=== PATIENT | female | born 1945 | race African-American/Black ===

== ENCOUNTER 2018-06-29 18:52 | Inpatient (IN) | payer MEDICARE, MEDICAID, OTHER ==
[~2018-06-29] VITALS: Ht 160 cm; Wt 40.4 kg
[2018-06-29 21:01] LABS: CHLORIDE 108 mEq/L (98-107)
[2018-06-29] MEDS ORDERED: NITROGLYCERIN OINT 1GM/INCH UDPKT TD ONE (21:45)
[2018-06-29] MEDS ORDERED: ASPIRIN 325MG EC TABLET PO ONE (21:45)
[2018-06-29] MEDS ORDERED: MORPHINE SULFATE 2 MG/ML CPJ (NOT FOR IM USE) IV ONE (21:45)
[2018-06-29 22:08] LABS: HEMATOCRIT. 36.9 % (36.0-48.0); HEMOGLOBIN. 12.1 g/dL (12.0-16.0); LYMPHOCYTES % 17.9 % (20.0-50.0); MEAN CORPUSCULAR HEMOGLOBIN 27.4 pg (28.0-32.0); MEAN CORPUSCULAR VOLUME 83.5 fL (81.0-99.0); MEAN PLATELET VOLUME 7.1 fl (7.4-10.4); MONOCYTES % 6.3 % (2.0-8.0); NEUTROPHILS % 73.8 % (40.0-76.0); PLATELET 505 x1000/uL (130-400); RED BLOOD CELL COUNT 4.42 mill/uL (4.2-5.4); RED CELL DISTRIBUTION WIDTH 17.5 % (11.6-14.6)
[2018-06-29] MEDS ORDERED: MORPHINE SULFATE 4 MG/ML CPJ (NOT FOR IM USE) IV NR (22:15)
[2018-06-29 22:25] LABS: PROTHROMBIN TIME 10.2 sec (9.1-11.1)
[2018-06-29 23:30] VITALS: BP 160/72
[2018-06-29] MEDS ORDERED: GUAIFENESIN 200MG/10ML SUGAR FREE UDC PO PRN (23:30)
[2018-06-29] MEDS ORDERED: ACETAMINOPHEN 325MG TABLET PO PRN (23:30)
[2018-06-29] MEDS ORDERED: DEXTROSE 50% WATER 50ML SYRINGE IV PRN (23:30)
[2018-06-29] MEDS ORDERED: HYDROCODONE/ACETAMINOPHEN 10/325MG TABLET PO PRN (23:30)
[2018-06-29] MEDS ORDERED: CLONIDINE 0.1MG TABLET PO PRN (23:30)
[2018-06-29] MEDS ORDERED: DOCUSATE SODIUM 100MG CAPSULE PO PRN (23:30)
[2018-06-29] MEDS ORDERED: HYDRALAZINE 20MG/ML VIAL IV PRN (23:30)
[2018-06-29] MEDS ORDERED: ONDANSETRON HCL 4MG/2ML INJ IV PRN (23:30)
[2018-06-29] MEDS ORDERED: DIPHENHYDRAMINE 50MG/ML VIAL IV PRN (23:30)
[2018-06-29] MEDS ORDERED: MAGNESIUM/ALUMINUM HYDROXIDE/SIMETHICONE 30ML UDC PO PRN (23:30)
[2018-06-29] MEDS ORDERED: IPRATROPIUM/ALBUTEROL 0.5-3(2.5)MG/3ML NEB INH PRN (23:30)
[2018-06-29] MEDS ORDERED: LORAZEPAM 2MG/ML CPJ IV PRN (23:30)
[2018-06-30] VITALS: BP 156/78
[2018-06-30] MEDS: MORPHINE SULFATE 4 MG/ML CPJ (NOT FOR IM USE) IV PRN ×3 (00:49→20:05)
[2018-06-30] MEDS ORDERED: DEXT 5%/0.45% NACL 1000ML 1,000 ML IV SCH ×2 (01:30→15:56)
[2018-06-30] MEDS ORDERED: CLOP75TA16 MT (01:42)
[2018-06-30] MEDS ORDERED: ASPI-1158 MT (01:42)
[2018-06-30] MEDS ORDERED: GLIM2TAB2 MT (01:42)
[2018-06-30] MEDS ORDERED: AMLO5TAB88 MT (01:42)
[2018-06-30] MEDS ORDERED: OMEP20CA10 MT (01:42)
[2018-06-30] MEDS ORDERED: GABA800T97 MT (01:42)
[2018-06-30 04:00] VITALS: BP 162/73
[2018-06-30 06:15] LABS: CLARITY URINE CLEAR (CLEAR); COLOR URINE YELLOW (YELLOW); KETONES URINE NEGATIVE (NEGATIVE); LEUKOCYTE ESTERASE URINE NEGATIVE (NEGATIVE); NITRITE URINE NEGATIVE (NEGATIVE); OCCULT BLOOD URINE NEGATIVE (NEGATIVE); PH URINE 6.5 (4.5-8.0); PROTEIN URINE TRACE (NEGATIVE); SPECIFIC GRAVITY URINE 1.009 (1.005-1.030); UROBILINOGEN URINE 0.2 E.U./dL (0.2-1.0)
[2018-06-30] MEDS: BLOOD SUGAR DIAGNOSTIC STRIP TEST SCH ×4 (07:02→20:22)
[2018-06-30] MEDS: INSULIN LISPRO 100 UNITS/ML SUBCUT SCH ×4 (07:02→20:22)
[2018-06-30] MEDS: SODIUM CHLORIDE 0.9% INJ 3ML FLUSH IVF SCH ×3 (07:06→22:00)
[2018-06-30 07:25] LABS: BASOPHILS % 0.7 % (0.0-2.0); EOSINOPHILS % 1.9 % (0.0-5.0); HEMATOCRIT. 32.8 % (36.0-48.0); HEMOGLOBIN. 11.3 g/dL (12.0-16.0); LYMPHOCYTES % 33.1 % (20.0-50.0); MEAN CORPUSCULAR HEMOGLOBIN 28.5 pg (28.0-32.0); MEAN CORPUSCULAR VOLUME 82.6 fL (81.0-99.0); MEAN PLATELET VOLUME 7.2 fl (7.4-10.4); MONOCYTES % 8.1 % (2.0-8.0); NEUTROPHILS % 56.2 % (40.0-76.0); PLATELET 474 x1000/uL (130-400); RED BLOOD CELL COUNT 3.97 mill/uL (4.2-5.4); RED CELL DISTRIBUTION WIDTH 17.4 % (11.6-14.6)
[2018-06-30 07:30] LABS: CHLORIDE 108 mEq/L (98-107)
[2018-06-30 07:40] LABS: LDL CHOLESTEROL 99 mg/dL (5-100)
[2018-06-30 07:41] LABS: CREATINE KINASE 78 IU/L (26-192); HDL CHOLESTEROL 34 mg/dL (40-59)
[2018-06-30 07:48] LABS: CREATINE KINASE MB FRACTION 6.8 ng/mL (0.5-3.6)
[2018-06-30 08:00] VITALS: BP 151/72
[2018-06-30] MEDS ORDERED: ASPIRIN 81MG EC TABLET PO SCH (09:00)
[2018-06-30] MEDS ORDERED: ENOXAPARIN 30MG/0.3ML SYR SUBCUT SCH ×2 (09:00→17:00)
[2018-06-30] MEDS: CLOPIDOGREL 75MG TABLET PO SCH (11:52)
[2018-06-30] MEDS: AMLODIPINE 2.5MG TABLET PO SCH ×2 (11:54→20:17)
[2018-06-30] MEDS: NITROGLYCERIN OINT 1GM/INCH UDPKT TD SCH ×2 (11:55→17:34)
[2018-06-30 12:00] VITALS: BP_SYST 136; BP_SYST 137; BP_SYST 156; BP_DIAS 69; BP_DIAS 73
[2018-06-30 14:52] LABS: *AMPHETAMINES SCREEN URINE NEGATIVE (NEGATIVE); *BARBITURATES SCREEN URINE NEGATIVE (NEGATIVE); *BENZODIAZEPINES SCREEN URINE NEGATIVE (NEGATIVE); *COCAINE SCREEN URINE PRESUMTIVE POSITIVE (NEGATIVE)
[2018-06-30 14:53] LABS: CANNABINOID URINE SCREEN NEGATIVE (NEGATIVE); METHADONE URINE SCREEN NEGATIVE (NEGATIVE); OPIATES URINE SCREEN PRESUMTIVE POSITIVE (NEGATIVE); PHENCYCLIDINE URINE SCREEN NEGATIVE (NEGATIVE)
[2018-06-30 16:00] VITALS: BP 146/56
[2018-06-30 16:27] LABS: CREATINE KINASE MB FRACTION 5.1 ng/mL (0.5-3.6)
[2018-06-30] MEDS: ASPIRIN 81MG EC TABLET PO SCH (17:34)
[2018-06-30 20:00] VITALS: BP_SYST 150; BP_SYST 153; BP_SYST 165; BP_DIAS 61; BP_DIAS 63; BP_DIAS 68
[2018-06-30] MEDS: METOPROLOL TARTRATE 25MG TABLET PO SCH (20:05)
[2018-06-30] MEDS: ATORVASTATIN CALCIUM 10MG TABLET PO SCH (20:06)
[2018-07-01] VITALS: BP 163/65
[2018-07-01] MEDS: NITROGLYCERIN OINT 1GM/INCH UDPKT TD SCH ×4 (00:28→17:29)
[2018-07-01 03:50] VITALS: BP 130/56
[2018-07-01] MEDS: MORPHINE SULFATE 4 MG/ML CPJ (NOT FOR IM USE) IV PRN ×3 (03:52→22:12)
[2018-07-01] MEDS: SODIUM CHLORIDE 0.9% INJ 3ML FLUSH IVF SCH ×3 (06:31→20:47)
[2018-07-01] MEDS: BLOOD SUGAR DIAGNOSTIC STRIP TEST SCH ×4 (06:35→20:48)
[2018-07-01] MEDS: INSULIN LISPRO 100 UNITS/ML SUBCUT SCH ×4 (06:35→20:49)
[2018-07-01 07:08] LABS: BASOPHILS % 0.6 % (0.0-2.0); EOSINOPHILS % 1.8 % (0.0-5.0); HEMATOCRIT. 31.6 % (36.0-48.0); HEMOGLOBIN. 10.2 g/dL (12.0-16.0); LYMPHOCYTES % 35.5 % (20.0-50.0); MEAN CORPUSCULAR VOLUME 83.4 fL (81.0-99.0); MEAN PLATELET VOLUME 7.4 fl (7.4-10.4); MONOCYTES % 8.9 % (2.0-8.0); NEUTROPHILS % 53.2 % (40.0-76.0); PLATELET 416 x1000/uL (130-400); RED BLOOD CELL COUNT 3.78 mill/uL (4.2-5.4); RED CELL DISTRIBUTION WIDTH 17.5 % (11.6-14.6)
[2018-07-01 07:30] LABS: CHLORIDE 107 mEq/L (98-107)
[2018-07-01 07:46] LABS: LDL CHOLESTEROL 84 mg/dL (5-100)
[2018-07-01 07:47] LABS: CREATINE KINASE 64 IU/L (26-192); CREATINE KINASE MB FRACTION 4.1 ng/mL (0.5-3.6)
[2018-07-01 07:48] LABS: HDL CHOLESTEROL 29 mg/dL (40-59); T4 FREE 1.12 ng/dL (0.76-1.46)
[2018-07-01 08:00] VITALS: BP 122/65
[2018-07-01] MEDS: AMLODIPINE 2.5MG TABLET PO SCH ×2 (09:00→20:46)
[2018-07-01] MEDS: CLOPIDOGREL 75MG TABLET PO SCH (09:27)
[2018-07-01] MEDS: ASPIRIN 81MG EC TABLET PO SCH ×2 (09:27→17:29)
[2018-07-01] MEDS: METOPROLOL TARTRATE 25MG TABLET PO SCH ×2 (09:28→20:46)
[2018-07-01 12:00] VITALS: BP 129/54
[2018-07-01] MEDS: ENOXAPARIN 40MG/0.4ML SYR SUBCUT SCH (13:19)
[2018-07-01 16:00] VITALS: BP 150/54
[2018-07-01 20:00] VITALS: BP_SYST 144; BP_SYST 148; BP_SYST 157; BP_DIAS 60; BP_DIAS 61; BP_DIAS 62
[2018-07-01] MEDS: ATORVASTATIN CALCIUM 10MG TABLET PO SCH (20:46)
[2018-07-02] VITALS: BP 160/58
[2018-07-02] MEDS: NITROGLYCERIN OINT 1GM/INCH UDPKT TD SCH ×3 (01:42→11:44)
[2018-07-02 04:00] VITALS: BP 178/77
[2018-07-02] MEDS: SODIUM CHLORIDE 0.9% INJ 3ML FLUSH IVF SCH ×3 (06:39→20:58)
[2018-07-02] MEDS: INSULIN LISPRO 100 UNITS/ML SUBCUT SCH ×4 (06:40→22:30)
[2018-07-02] MEDS: BLOOD SUGAR DIAGNOSTIC STRIP TEST SCH ×4 (06:40→20:58)
[2018-07-02 07:19] LABS: BASOPHILS % 0.5 % (0.0-2.0); EOSINOPHILS % 2.4 % (0.0-5.0); HEMATOCRIT. 32.2 % (36.0-48.0); HEMOGLOBIN. 10.6 g/dL (12.0-16.0); LYMPHOCYTES % 30.2 % (20.0-50.0); MEAN CORPUSCULAR VOLUME 82.1 fL (81.0-99.0); MEAN PLATELET VOLUME 7.7 fl (7.4-10.4); MONOCYTES % 9.7 % (2.0-8.0); NEUTROPHILS % 57.2 % (40.0-76.0); PLATELET 456 x1000/uL (130-400); RED BLOOD CELL COUNT 3.92 mill/uL (4.2-5.4); RED CELL DISTRIBUTION WIDTH 17.6 % (11.6-14.6)
[2018-07-02 08:00] VITALS: BP 132/63
[2018-07-02] MEDS: CLOPIDOGREL 75MG TABLET PO SCH (09:11)
[2018-07-02] MEDS: METOPROLOL TARTRATE 25MG TABLET PO SCH ×2 (09:11→20:57)
[2018-07-02] MEDS: AMLODIPINE 2.5MG TABLET PO SCH (09:11)
[2018-07-02] MEDS: ASPIRIN 81MG EC TABLET PO SCH ×2 (09:11→16:41)
[2018-07-02 11:35] VITALS: BP_SYST 159; BP_SYST 161; BP_SYST 166; BP_DIAS 57; BP_DIAS 61; BP_DIAS 76
[2018-07-02] MEDS: ENOXAPARIN 40MG/0.4ML SYR SUBCUT SCH (11:43)
[2018-07-02] MEDS: LOSARTAN POTASSIUM 50 MG TABLET PO SCH (13:28)
[2018-07-02 16:00] VITALS: BP 166/65
[2018-07-02 20:00] VITALS: BP 151/67
[2018-07-02] MEDS: ATORVASTATIN CALCIUM 10MG TABLET PO SCH (20:57)
[2018-07-02] MEDS: AMLODIPINE 5MG TABLET PO SCH (20:57)
[2018-07-02] MEDS: MORPHINE SULFATE 4 MG/ML CPJ (NOT FOR IM USE) IV PRN (20:59)
[2018-07-03] VITALS (7 sets, daily range): BP systolic 81–164; BP diastolic 46–63
[2018-07-03] MEDS: BLOOD SUGAR DIAGNOSTIC STRIP TEST SCH ×4 (06:13→21:00)
[2018-07-03] MEDS: INSULIN LISPRO 100 UNITS/ML SUBCUT SCH ×4 (06:13→21:00)
[2018-07-03] MEDS: SODIUM CHLORIDE 0.9% INJ 3ML FLUSH IVF SCH ×3 (06:13→22:05)
[2018-07-03] MEDS: LOSARTAN POTASSIUM 50 MG TABLET PO SCH (08:58)
[2018-07-03] MEDS: ENOXAPARIN 30MG/0.3ML SYR SUBCUT SCH (08:59)
[2018-07-03] MEDS: AMLODIPINE 5MG TABLET PO SCH ×2 (08:59→22:04)
[2018-07-03] MEDS: CLOPIDOGREL 75MG TABLET PO SCH (08:59)
[2018-07-03] MEDS: ASPIRIN 81MG EC TABLET PO SCH ×2 (08:59→16:23)
[2018-07-03] MEDS: METOPROLOL TARTRATE 25MG TABLET PO SCH ×2 (09:06→22:04)
[2018-07-03] MEDS: ATORVASTATIN CALCIUM 10MG TABLET PO SCH (22:04)
[2018-07-03] MEDS: MORPHINE SULFATE 4 MG/ML CPJ (NOT FOR IM USE) IV PRN (22:04)
[2018-07-04] VITALS: BP 121/67
[2018-07-04 04:00] VITALS: BP 147/66
[2018-07-04] MEDS: INSULIN LISPRO 100 UNITS/ML SUBCUT SCH ×2 (05:42→12:41)
[2018-07-04] MEDS: SODIUM CHLORIDE 0.9% INJ 3ML FLUSH IVF SCH ×2 (05:42→13:48)
[2018-07-04] MEDS: BLOOD SUGAR DIAGNOSTIC STRIP TEST SCH ×2 (05:43→12:37)
[2018-07-04 06:38] LABS: BASOPHILS % 0.6 % (0.0-2.0); EOSINOPHILS % 2.4 % (0.0-5.0); HEMATOCRIT. 37.3 % (36.0-48.0); LYMPHOCYTES % 30.8 % (20.0-50.0); MEAN CORPUSCULAR HEMOGLOBIN 26.8 pg (28.0-32.0); MEAN CORPUSCULAR VOLUME 83.5 fL (81.0-99.0); MEAN PLATELET VOLUME 7.6 fl (7.4-10.4); MONOCYTES % 9.8 % (2.0-8.0); NEUTROPHILS % 56.4 % (40.0-76.0); PLATELET 481 x1000/uL (130-400); RED BLOOD CELL COUNT 4.46 mill/uL (4.2-5.4)
[2018-07-04 08:00] VITALS: BP 149/60
[2018-07-04] MEDS: CLOPIDOGREL 75MG TABLET PO SCH (09:14)
[2018-07-04] MEDS: ENOXAPARIN 30MG/0.3ML SYR SUBCUT SCH (09:14)
[2018-07-04] MEDS: METOPROLOL TARTRATE 25MG TABLET PO SCH (09:14)
[2018-07-04] MEDS: ASPIRIN 81MG EC TABLET PO SCH (09:14)
[2018-07-04] MEDS: AMLODIPINE 5MG TABLET PO SCH (09:14)
[2018-07-04] MEDS: LOSARTAN POTASSIUM 50 MG TABLET PO SCH (09:14)
[2018-07-04 12:00] VITALS: BP 134/50
[2018-07-04 13:11] VITALS: BP 134/50
== END 2018-07-04 15:07 | disposition home or self-care (01) | DRG 190 ==
LOC: ER 18:52 → EDBD 22:16 → 5WST 22:16 → ENRESERV 22:38
PROVIDERS: ADMIT Internal Medicine; ATTEND Internal Medicine
DX: I21.4 Non-ST elevation (NSTEMI) myocardial infarction (principal); N17.0 Acute kidney failure with tubular necrosis; G93.40 Encephalopathy, unspecified; E46 Unspecified protein-calorie malnutrition; E87.5 Hyperkalemia; E11.649 Type 2 diabetes mellitus with hypoglycemia without coma; F14.90 Cocaine use, unspecified, uncomplicated; F17.210 Nicotine dependence, cigarettes, uncomplicated; I11.9 Hypertensive heart disease without heart failure; D47.3 Essential (hemorrhagic) thrombocythemia; I25.10 Atherosclerotic heart disease of native coronary artery without angina pectoris; Z79.02 Long term (current) use of antithrombotics/antiplatelets; Z79.82 Long term (current) use of aspirin; Z79.84 Long term (current) use of oral hypoglycemic drugs; Z79.899 Other long term (current) drug therapy
CPT/HCPCS: 36415; 71045; 80048; 80061; 80305; 82550; 82553; 82962; 83735; 83880; 84439; 84443; 84484; 85379; 93005; 93306; 93880; 93970; 96365; 96372; 96375; 99285; J1650; J1815; J2270

== ENCOUNTER 2019-04-06 18:34 | Inpatient (IN) | payer MEDICARE, MEDICAID ==
[~2019-04-06] VITALS: Ht 160 cm; Wt 40.8 kg
[~2019-04-06 18:34] MED LIST: AMLO5TAB88 MT; ASPI-1158 MT; CLOP75TA4 MT; GABA800T97 MT; GLIM2TAB2 MT; OMEP20CA5 MT
[2019-04-06] MEDS ORDERED: ONDANSETRON HCL 4MG/2ML INJ IV STA (18:47)
[2019-04-06] MEDS ORDERED: SODIUM CHLORIDE 0.9% 1,000 ML IV ONE (18:47)
[2019-04-06 18:54] LABS: BASOPHILS % 1.2 % (0.0-2.0); HEMATOCRIT. 39.5 % (36.0-48.0); HEMOGLOBIN. 13.2 g/dL (12.0-16.0); LYMPHOCYTES % 38.3 % (20.0-50.0); MEAN CORPUSCULAR VOLUME 83.7 fL (81.0-99.0); MEAN PLATELET VOLUME 7.7 fl (7.4-10.4); MONOCYTES % 9.5 % (2.0-8.0); PLATELET 304 x1000/uL (130-400); RED BLOOD CELL COUNT 4.71 mill/uL (4.2-5.4); RED CELL DISTRIBUTION WIDTH 18.9 % (11.6-14.6)
[2019-04-06 18:59] LABS: CHLORIDE 110 mEq/L (98-107)
[2019-04-06 19:02] LABS: ETHANOL BLOOD < 10 mg/dL; PARTIAL THROMBOPLASTIN TIME 25.9 sec (23.4-31.0); PROTHROMBIN TIME 10.3 sec (9.6-11.0)
[2019-04-06 19:07] LABS: CREATINE KINASE 120 IU/L (26-192)
[2019-04-06 19:10] LABS: CREATINE KINASE MB FRACTION 7.4 ng/mL (0.5-3.6)
[2019-04-06] MEDS ORDERED: MORPHINE SULFATE 2 MG/ML CPJ (NOT FOR IM USE) IV ONE (20:00)
[2019-04-06] MEDS ORDERED: FAMOTIDINE 20MG/2ML VIAL IV ONE (20:00)
[2019-04-06 20:37] LABS: CLARITY URINE CLEAR (CLEAR); COLOR URINE YELLOW (YELLOW); KETONES URINE NEGATIVE (NEGATIVE); LEUKOCYTE ESTERASE URINE TRACE (NEGATIVE); NITRITE URINE NEGATIVE (NEGATIVE); OCCULT BLOOD URINE TRACE (NEGATIVE); PH URINE 6.5 (4.5-8.0); PROTEIN URINE TRACE (NEGATIVE); UROBILINOGEN URINE 0.2 E.U./dL (0.2-1.0)
[2019-04-06] MEDS ORDERED: CLONIDINE 0.1MG TABLET PO ONE (20:45)
[2019-04-06 21:05] LABS: *AMPHETAMINES SCREEN URINE NEGATIVE (NEGATIVE); *BARBITURATES SCREEN URINE NEGATIVE (NEGATIVE); *BENZODIAZEPINES SCREEN URINE NEGATIVE (NEGATIVE)
[2019-04-06 21:06] LABS: *COCAINE SCREEN URINE PRESUMTIVE POSITIVE (NEGATIVE); CANNABINOID URINE SCREEN NEGATIVE (NEGATIVE); METHADONE URINE SCREEN NEGATIVE (NEGATIVE); OPIATES URINE SCREEN NEGATIVE (NEGATIVE); PHENCYCLIDINE URINE SCREEN NEGATIVE (NEGATIVE)
[2019-04-07] MEDS ORDERED: MORPHINE SULFATE 2 MG/ML CPJ (NOT FOR IM USE) IV PRN (00:45)
[2019-04-07] MEDS ORDERED: HYDROCODONE/ACETAMINOPHEN 5/325MG TABLET PO PRN (00:45)
[2019-04-07] MEDS ORDERED: LORAZEPAM 2MG/ML CPJ IV PRN (00:45)
[2019-04-07 02:00] VITALS: BP 160/59
[2019-04-07] MEDS: THIAMINE HCL 100MG TABLET PO SCH (02:17)
[2019-04-07] MEDS ORDERED: METOPROLOL TARTRATE 25MG TABLET PO SCH (02:30)
[2019-04-07] MEDS ORDERED: DEXTROSE 50% WATER 50ML SYRINGE IV PRN (02:45)
[2019-04-07] MEDS ORDERED: SODIUM CHLORIDE 0.9% 1,000 ML IV SCH (03:00)
[2019-04-07 04:00] VITALS: BP 161/53
[2019-04-07] MEDS: BLOOD SUGAR DIAGNOSTIC STRIP TEST SCH ×4 (06:18→20:59)
[2019-04-07] MEDS: INSULIN LISPRO 100 UNITS/ML SUBCUT SCH ×4 (06:18→20:59)
[2019-04-07] MEDS: CLONIDINE 0.1MG TABLET PO PRN (07:28)
[2019-04-07 08:00] VITALS: BP 140/63
[2019-04-07] MEDS: ASPIRIN 81MG EC TABLET PO SCH (09:57)
[2019-04-07] MEDS: ENOXAPARIN 30MG/0.3ML SYR SUBCUT SCH (09:58)
[2019-04-07] MEDS: CLOPIDOGREL 75MG TABLET PO SCH (11:00)
[2019-04-07] MEDS ORDERED: AMLODIPINE 5MG TABLET PO SCH (11:00)
[2019-04-07 12:00] VITALS: BP 122/42
[2019-04-07] MEDS: NITROGLYCERIN OINT 1GM/INCH UDPKT TD SCH ×2 (14:55→21:49)
[2019-04-07 16:00] VITALS: BP 140/52
[2019-04-07 20:00] VITALS: BP 147/56
[2019-04-07 20:20] LABS: BASOPHILS % 1.5 % (0.0-2.0); EOSINOPHILS % 4.2 % (0.0-5.0); HEMATOCRIT. 35.4 % (36.0-48.0); HEMOGLOBIN. 11.8 g/dL (12.0-16.0); LYMPHOCYTES % 33.2 % (20.0-50.0); MEAN CORPUSCULAR HEMOGLOBIN 28.5 pg (28.0-32.0); MEAN CORPUSCULAR VOLUME 85.5 fL (81.0-99.0); NEUTROPHILS % 53.1 % (40.0-76.0); PLATELET 221 x1000/uL (130-400); RED BLOOD CELL COUNT 4.15 mill/uL (4.2-5.4); RED CELL DISTRIBUTION WIDTH 18.6 % (11.6-14.6)
[2019-04-07] MEDS: AMLODIPINE 2.5MG TABLET PO SCH (21:50)
[2019-04-08] VITALS: BP 171/57
[2019-04-08] MEDS: CLONIDINE 0.1MG TABLET PO PRN ×2 (00:30→17:19)
[2019-04-08] MEDS: BUDESONIDE 0.5MG/2ML NEB HHN SCH ×3 (01:17→20:35)
[2019-04-08] MEDS: IPRATROPIUM/ALBUTEROL 0.5-3(2.5)MG/3ML NEB NEB PRN ×2 (01:17→09:32)
[2019-04-08 04:00] VITALS: BP 112/70
[2019-04-08 05:38] LABS: BASOPHILS % 1.1 % (0.0-2.0); EOSINOPHILS % 5.8 % (0.0-5.0); HEMATOCRIT. 33.7 % (36.0-48.0); HEMOGLOBIN. 11.2 g/dL (12.0-16.0); LYMPHOCYTES % 37.4 % (20.0-50.0); MEAN CORPUSCULAR VOLUME 83.9 fL (81.0-99.0); MEAN PLATELET VOLUME 8.2 fl (7.4-10.4); MONOCYTES % 6.2 % (2.0-8.0); NEUTROPHILS % 49.5 % (40.0-76.0); PLATELET 220 x1000/uL (130-400); RED BLOOD CELL COUNT 4.01 mill/uL (4.2-5.4); RED CELL DISTRIBUTION WIDTH 18.6 % (11.6-14.6)
[2019-04-08] MEDS: INSULIN LISPRO 100 UNITS/ML SUBCUT SCH ×4 (06:23→21:00)
[2019-04-08] MEDS: BLOOD SUGAR DIAGNOSTIC STRIP TEST SCH ×4 (06:23→21:00)
[2019-04-08] MEDS: NITROGLYCERIN OINT 1GM/INCH UDPKT TD SCH (06:32)
[2019-04-08 08:00] VITALS: BP 161/71
[2019-04-08] MEDS: ASPIRIN 81MG EC TABLET PO SCH (08:59)
[2019-04-08] MEDS: ENOXAPARIN 30MG/0.3ML SYR SUBCUT SCH (08:59)
[2019-04-08] MEDS: AMLODIPINE 2.5MG TABLET PO SCH ×2 (08:59→22:05)
[2019-04-08] MEDS: THIAMINE HCL 100MG TABLET PO SCH (08:59)
[2019-04-08] MEDS: CLOPIDOGREL 75MG TABLET PO SCH (08:59)
[2019-04-08 12:00] VITALS: BP 176/70
[2019-04-08] MEDS ORDERED: SODIUM POLYSTYRENE SULFONATE 15 G/60 ML BOT PO SCH (13:00)
[2019-04-08] MEDS: HYDRALAZINE HCL 25MG TABLET PO SCH ×2 (13:04→22:05)
[2019-04-08 16:00] VITALS: BP_SYST 181; BP_SYST 205; BP_DIAS 63; BP_DIAS 73
[2019-04-08] MEDS: CEFTRIAXONE 1 G PREMIX 50 ML IV SCH (17:04)
[2019-04-09] VITALS: BP 173/75
[2019-04-09] MEDS: CLONIDINE 0.1MG TABLET PO PRN ×2 (00:11→09:15)
[2019-04-09 04:00] VITALS: BP 135/88
[2019-04-09] MEDS: HYDRALAZINE HCL 25MG TABLET PO SCH (05:41)
[2019-04-09 05:48] LABS: EOSINOPHILS % 4.7 % (0.0-5.0); HEMATOCRIT. 36.2 % (36.0-48.0); HEMOGLOBIN. 12.2 g/dL (12.0-16.0); MEAN CORPUSCULAR HEMOGLOBIN 28.1 pg (28.0-32.0); MEAN CORPUSCULAR VOLUME 83.2 fL (81.0-99.0); MEAN PLATELET VOLUME 7.9 fl (7.4-10.4); MONOCYTES % 8.4 % (2.0-8.0); NEUTROPHILS % 50.9 % (40.0-76.0); PLATELET 247 x1000/uL (130-400); RED BLOOD CELL COUNT 4.35 mill/uL (4.2-5.4); RED CELL DISTRIBUTION WIDTH 18.1 % (11.6-14.6)
[2019-04-09 06:17] LABS: PHOSPHORUS 3.4 mg/dL (2.5-4.9)
[2019-04-09] MEDS: INSULIN LISPRO 100 UNITS/ML SUBCUT SCH ×2 (07:10→12:02)
[2019-04-09] MEDS: BLOOD SUGAR DIAGNOSTIC STRIP TEST SCH ×2 (07:10→12:02)
[2019-04-09] MEDS: IPRATROPIUM/ALBUTEROL 0.5-3(2.5)MG/3ML NEB NEB PRN (07:53)
[2019-04-09] MEDS: BUDESONIDE 0.5MG/2ML NEB HHN SCH (07:54)
[2019-04-09 08:00] VITALS: BP 178/67
[2019-04-09] MEDS: ENOXAPARIN 30MG/0.3ML SYR SUBCUT SCH (09:14)
[2019-04-09] MEDS: CEFTRIAXONE 1 G PREMIX 50 ML IV SCH (09:14)
[2019-04-09] MEDS: AMLODIPINE 2.5MG TABLET PO SCH (09:14)
[2019-04-09] MEDS: THIAMINE HCL 100MG TABLET PO SCH (09:15)
[2019-04-09] MEDS: CLOPIDOGREL 75MG TABLET PO SCH (09:15)
[2019-04-09] MEDS: ASPIRIN 81MG EC TABLET PO SCH (09:15)
[2019-04-09] MEDS ORDERED: LOSARTAN POTASSIUM 25 MG TABLET PO SCH (10:30)
[2019-04-09 11:58] VITALS: BP 133/67
[2019-04-09] MEDS ORDERED: HYDRALAZINE HCL 50MG TABLET PO SCH (14:00)
[2019-04-09 14:48] VITALS: BP 133/67
[2019-04-09] MEDS ORDERED: AMLODIPINE 5MG TABLET PO SCH ×2 (16:29→21:00)
== END 2019-04-09 17:40 | disposition home or self-care (01) | DRG 198 ==
LOC: ER 18:55 → 8WST 21:44 → ENRESERV 04-07 01:00
PROVIDERS: ADMIT Internal Medicine Nephrology; ATTEND Internal Medicine Nephrology
DX: R07.89 Other chest pain (principal); I25.10 Atherosclerotic heart disease of native coronary artery without angina pectoris; N17.9 Acute kidney failure, unspecified; I95.9 Hypotension, unspecified; E11.22 Type 2 diabetes mellitus with diabetic chronic kidney disease; E87.5 Hyperkalemia; E87.8 Other disorders of electrolyte and fluid balance, not elsewhere classified; I13.10 Hypertensive heart and chronic kidney disease without heart failure, with stage 1 through stage 4 chronic kidney disease, or unspecified chronic kidney disease; F14.988 Cocaine use, unspecified with other cocaine-induced disorder; J44.9 Chronic obstructive pulmonary disease, unspecified; F17.210 Nicotine dependence, cigarettes, uncomplicated; I45.10 Unspecified right bundle-branch block; N18.3 Chronic kidney disease, stage 3 (moderate); Z79.02 Long term (current) use of antithrombotics/antiplatelets; I25.2 Old myocardial infarction; Z82.3 Family history of stroke; Z82.49 Family history of ischemic heart disease and other diseases of the circulatory system; Z95.5 Presence of coronary angioplasty implant and graft; Z79.899 Other long term (current) drug therapy; Z79.82 Long term (current) use of aspirin; Z71.6 Tobacco abuse counseling; Z71.51 Drug abuse counseling and surveillance of drug abuser
CPT/HCPCS: 36415; 71045; 80048; 80305; 80320; 81003; 82550; 82553; 82962; 83735; 83880; 84100; 84443; 84484; 93005; 93306; 94640; 96374; 97162; 99285; J0696; J1650; J1815; J2060; J2270; J2405; J3490; J7030; J7620; J7626; G0480